=== PATIENT | female | born 1970 | race Caucasian/White ===

== ENCOUNTER 2020-05-26 08:23 | Outpatient (CLI) | payer BC, SELFPAY ==
--- NOTE | 2020-05-26 08:30 | FL_ITS ---
WS: [id number] ESOPHAGRAM TECHNIQUE: Double contrast examination was performed with thin and thick barium. Upright and RUSSELL imag es were obtained. CLINICAL INFORMATION: COMPARISON: None. FINDINGS: Swallowing: No evidence of aspiration or penetration. Esophagus: No evidence of high-grade stricture or mass. Mild esophageal dysmotility. This results in slightly delayed emptying on the upright and supine imaging. Delayed transit of the barium tablet at the GE junction which cleared with additional fluid. Tiny esophageal hiatal hernia. Gastroesophageal reflux: Mild reflux into the midesophagus on the upright and supine imaging. Fluoroscopy time: 3.8 minutes. FL/FL barium swallow [id number] IMPRESSION: 1. Mild esophageal dysmotility with slightly delayed emptying 2. Mild reflux into the midesophagus in the upright and supine imaging. Tiny e sophageal hiatal hernia. 3. Delayed transit of barium tablet at GE junction which cleared with addition al fluid. 4. No evidence of high-grade stricture or obstructing mass.
== END 2020-05-26 08:24 | disposition home or self-care (01) ==
PROVIDERS: PCP Family Medicine; Visit Provider Otolaryngology
DX: R22.1 Localized swelling, mass and lump, neck (principal); K44.9 Diaphragmatic hernia without obstruction or gangrene; K21.9 Gastro-esophageal reflux disease without esophagitis
CPT/HCPCS: 74220